=== PATIENT | male | born 1965 | race Two or more races ===

== ENCOUNTER 2025-02-15 18:11 | Emergency (ER) | payer MEDICAID, OTHER ==
[~2025-02-15] VITALS: Ht 182.9 cm; Wt 88.6 kg
[2025-02-15 19:30] VITALS: PULSE 71; RESP 17; O2SAT 95
[2025-02-15 19:50] LABS: Hematocrit 48.3 % (41.0-53.0); Hemoglobin 16.2 g/dL (13.5-17.5); Mean Corpuscular Hemoglobin 31.6 pg (28.0-32.0); Mean Corpuscular Volume 94.5 fL (80.0-100.0); Nucleated Red Blood Cells % 0.0 %
--- NOTE | 2025-02-15 19:54 | ED.PDOC ---
Altered Mental Status HPI Comments HPI: 59 year old male presents to the ED via EMS with a chief compliant of ETOH onset today (02/15/25). Per EMS, patient is from [facility], patient consumed 1 large Vodka bottle today. Upon EMS arrival, they were told there is a "[facility]ies" outbreak at the [facility], EMS noticed bugs in patient's room. However p atient does not complain of any itchiness or skin symptoms. He was given 4mg Zofran in route to ED. Patient is a poor historian, states he is currently experiencing back pain. He has chronic back pain with multiple back surgeries. No other symptoms or modifying factors present at this time. No history of fall or trauma or injuries. Initial Vitals BP: 117/72 HR: 62 RR: 17 O2: 99% Temp: 97.2 F Past Medical History: unknown Past Surgical History: back surgery, RT foot surgery Social History: Denies smoking, and drug use. Heavy ETOH. Medications: Denies Allergies: NKDA HPI: Poor Historian. REVIEW OF SYSTEMS: CONSTITUTIONAL: Denies acute: fever, diaphoresis, chills, HEAD: Denies acute: headache, photophobia Eyes: Denies acute: Double vision, vision loss, eye pain, eye discharge. EARS: Denies acute: tinnitus, hearing loss, ear discharge, ear pain, THROAT: Denies acute: sore throat, swelling, difficulty swallowing , pain with swallowing, change in voice. NECK: Denies acute: neck pain, neck swelling, stiff neck. HEART: Denies acute : chest pain, palpitations, LUNGS: Denies acute: SOB, wheezing, cough, hemoptysis ABDOMEN: Denies acute: abdominal pain, Nausea, Vomiting, diarrhea, melena , hematemesis, hematochezia SKIN: Denies acute: rash, redness, lesions, itchiness. EXTREMITIES: Denies acute: calf pain, numbness, tingling, weakness, denies pain in extremity. Denies acute: Low back pain. Neuro: Denies acute: focal neurological deficit, motor or sensory focal neurological deficit, tremors, seizure like activity, loss of bowel or bladder function, cauda equina like symptoms. : Denies acute: dysuria, hematuria, flank pain, increase in urinary frequency. PSYCH: Denies acute: hallucination, suicidal ideation, homicidal ideation. PHYSICAL EXAM: General: ----no----acute distress, awake and alert. Head: normocephalic, atraumatic. Neck: supple, trachea is midline, no swelling. Throat: Normal phonation. Eyes:, no erythema, no purulent discharge, no proptosis, no icterus. Heart: regular rate, regular rhythm, no significant murmur appreciated. Lungs: no apparent respiratory distress, Able to speak in full sentences. No wheezing, no rhonchi, no crackles. No stridors Clear to auscultation bilaterally. Abdomen: non tender to palpation, non distended, soft, no guarding, no rebound, + bowel sounds. Neuro: Awake, Alert, oriented to name, follows commands. Appears under the influence of alcohol. Sluggish in response Skin: no petechia, no purpura, no cyanosis, non-pale, not jaundice. Lower extremities: --trace bilateral - Pitting edema no deformity, no focal swelling, no calf TTP. Makes eye contact. moves all four extremities. Face: no apparent facial droop. Ambulating in the ED independently. ED COURSE: DISCLAIMER: This medical document was created using an electronic medical record system with voice recognition software and computerized dictation system. Although this document has been carefully reviewed, there might still be some phonetic and typographical errors. Occasional wrong-word or "sound-alike" substitutions may have occurred due to the inherent limitations of voice recognition software. These areas are purely typographical due to imperfections of the software programs and do not reflect any compromise in the patient's medical care. Please read the chart carefully and recognize, using context, where these substitutions have occurred. Chief Complaint: ETOH Time Seen by MD: 19:15 Reviewed Notes: Medications, Allergies Allergies: Coded Allergies: NO KNOWN ALLERGIES (Unverified , 02/15/25) Information Source: Patient, Emergency Med Personnel Mode of Arrival: EMS Severity: Moderate Timing: Days Duration: Since onset Prehospital treatment: Treatment (Zofran 4mg) Past Medical History Surgical History (Other): back surgery, RT foot surgery Family History Family History: Reviewed,noncontributory to illness, No family hx of Cancer, No family hx of DM, No family hx of Heart willem, No family hx of HTN, No family hx ofKidney willem, No family hx of Liver willem, No family hx of Lung willem, No family hx of Stroke Social History Smoker: Non-Smoker Alcohol: Heavy Drugs: Denies Drug Use Lives In: [facility] Was a procedure done? Was a procedure done?: No Differential Diagnosis (ALOC) Differential Diagnosis: Dehydration, Hypoglycemia, DKA, Sepsis, Hypoxemia, Seizure, Closed Head Injury, Drug Overdose, ETOH Intoxication, Heart Failure, Renal Failure, Other (DDX include CVA, TGA, cerebellar ischemia/infarct, carotid stenosis, Intracranial mass/infection/bleed, encephalopathy, electrolyte abnormality, thyroid disease, hydrocephalus, hypoglycemia, drug toxicity, cardiac arrhythmia, seizure, infection in the elderly, Hyperammonemia., kidney failure., sepsis.) X-Ray, Labs, Meds, VS Vital Signs Date Time Temp Pulse Resp B/P (MAP) Pulse Ox O2 Delivery O2 Flow Rate FiO2 02/16/25 06:00 97.9 60 14 142/76 (98) 98 97.9 02/16/25 04:00 78 12 114/91 (99) 97 02/16/25 02:00 80 12 130/83 (99) 97 02/16/25 01:00 78 10 122/77 (92) 97 02/16/25 00:00 83 8 122/79 (93) 92 02/15/25 23:00 58 12 105/62 (76) 97 02/15/25 22:00 57 11 128/68 (88) 92 02/15/25 20:54 62 20 122/77 (92) 92 02/15/25 19:30 97.8 71 17 101/59 (73) 95 97.8 02/15/25 19:30 71 17 95 Room Air* 0 21 02/15/25 18:20 97.2 62 17 117/72 99 97.2 Lab Test 02/16/25 05:44 02/16/25 00:27 02/15/25 19:35 Range/Units Plasma/Serum Blood Alcohol 124.9 H 226.6 H 276.1 H <10 mg/dL White Blood Count 9.3 4.4-10.8 10^3/uL Red Blood Count 5.11 4.5-5.90 10^6/uL Hemoglobin 16.2 13.5-17.5 g/dL Hematocrit 48.3 41.0-53.0 % Mean Corpuscular Volume 94.5 80.0-100.0 fL Mean Corpuscular Hemoglobin 31.6 28.0-32.0 pg Mean Corpuscular Hemoglobin Concent 33.5 32.0-36.0 g/dL Red Cell Distribution Width 13.9 11.8-14.3 % Platelet Count 126 L 140-450 10^3/uL Mean Platelet Volume 10.8 6.9-10.8 fL Neutrophils (%) (Auto) 59.7 37.0-80.0 % Lymphocytes (%) (Auto) 28.1 10.0-50.0 % Monocytes (%) (Auto) 4.9 0.0-12.0 % Eosinophils (%) (Auto) 6.3 0.0-7.0 % Basophils (%) (Auto) 1.0 0.0-2.0 % Neutrophils # (Auto) 5.6 1.6-8.6 10 ^3/uL Lymphocytes # (Auto) 2.6 0.4-5.4 10 ^3/uL Monocytes # (Auto) 0.5 0-1.3 10 ^3/uL Eosinophils # (Auto) 0.6 0-0.8 10 ^3/uL Basophils # (Auto) 0.1 0-0.2 10 ^3/uL Nucleated Red Blood Cells 0.0 % Sodium Level 144 136-145 mmol/L Potassium Level 4.1 3.5-5.1 mmol/L Chloride Level 110 H 98-107 mmol/L Carbon Dioxide Level 25 20-31 mmol/L Anion Gap 9 5-15 Blood Urea Nitrogen 11 9-23 mg/dL Creatinine 0.65 L 0.700-1.30 mg/dL Glomerular Filtration Rate Calc 109 >90 mL/min BUN/Creatinine Ratio 16.9 10.0-20.0 Serum Glucose 98 74-106 mg/dL Lactic Acid Level 2.0 0.4-2.0 mmol/L Calcium Level 8.5 L 8.7-10.4 mg/dL Magnesium Level 2.2 1.6-2.6 mg/dL Total Bilirubin 0.3 0.2-1.0 mg/dL Aspartate Amino Transferase (AST) 52 H 13-40 U/L Alanine Aminotransferase (ALT) 61 H 7-40 U/L Alkaline Phosphatase 114 46-116 U/L Troponin I High Sensitivity 17 </=54 ng/L B-Type Natriuretic Peptide 70.34 0-100 pg/mL Total Protein 7.2 5.7-8.2 g/dL Albumin 4.2 3.2-4.8 g/dL Current Medications Medications (Trade) Dose Ordered Sig/Elsy Route Start Time Stop Time Status Last Admin Sodium Chloride 1,000 ml @ 1,000 mls/hr Q1H ONCE IV 02/15/25 19:30 02/15/25 20:29 DC 02/15/25 20:50 Sodium Chloride 1,000 ml @ 1,000 mls/hr Q1H ONCE IV 02/15/25 22:45 02/15/25 23:44 DC 02/15/25 23:03 [place] [id number] Ph: [phone] DIAGNOSTIC IMAGING Diagnostic Imaging Report : [id number] Signed PATIENT: KASSANDRA GUSMAN ACCT: [id number] UNIT: [id number] : 1965 LOC: ER ROOM / BED: / AGE / SEX: 59 / M ADM STATUS: REG ER SERVICE 17 ORDERING PHYSICIAN: CHUCK OROSCO DO PROCEDURE(s): CXRP - CHEST PORTABLE REASON: ETOH ORDER NUMBER(s): [id number], ACCESSION NUMBER(s): [id number] CHEST RADIOGRAPH Indication: ETOH Technique: 1 view Comparison: None available FINDINGS: Lines and Tubes: None. Lungs/Pleura: Hazy basilar opacities most consistent with atelectasis. No focal consolidation, pleural effusion or pneumothorax. Cardiomediastinum: Normal heart size. Post CABG change. Other: No acute osseous abnormality. Unremarkable sternotomy wires. IMPRESSION: 1. No acute cardiopulmonary abnormality. ATED BY: AKASH SMITH MD DICTATED DATE/TIME: 02/15/252002 SIGNED BY: AKASH SMITH MD SIGNED DATE/TIME: 02/15/252002 CC: Time of 1ST Reevaluation: 19:45 Reevaluation 1ST: Unchanged Patient Education/Counseling: Diagnosis, Treatment Family Education/Counseling: No Family Present Assigned to Dr. Dr. Godoy. Patient is awaiting reassessment and final disposition and his ride to take him back to his facility. Comments MDM: patient presented with the above HPI.---alcohol intoxication---workup was initiated. patient was found with the above mentioned diagnosis. the following medications were ordered: please refer to order lists of meds and tests obtained by myself Dr. Orosco. Patient ED course and VS have been stabilized. Patient has been reassessed in the ED and remained in a stable condition. Escalation of care considered: Consideration of escalation to observation or admission Alcohol level is improving. Patient is awaiting final reassessment and disposition and his ride back to the facility. The care of this patient was signed out to my colleague Dr. Godoy All the reports of any imaging studies that were ordered by myself were reviewed by myself. Departure 1 Departure Time of Disposition: 07:13 Impression: Primary Impression: Alcohol intoxication Additional Impression: Alcohol abuse Disposition: HOME / SELF CARE / HOMELESS Condition: Stable Additional Instructions: Additional instructions: Please read all instructions provided in this packet carefully. You MUST follow-up with your primary care/family doctor in 1 to 2 days. If you are unable to see your primary care/family doctor, please return to our emergency room for re-assessment and re-evaluation in 1 to 2 days. Return to the emergency room here in our facility or to the nearest ER [facility] if your symptoms change or worsen. Seek help regarding your alcohol addiction. Adequate fluid hydration. Although you have been discharged from the Emergency Department, this does not mean that you have a "clean bill of health". No definitive diagnosis for your symptoms has been made today. It is possible that you are in the process of developing a serious illness. This is why you must return to the ED without fail if any new or worsening symptoms develop. Discharged With: Self Critical Care Note Critical Care Time?: No I personally scribed for CHUCK OROSCO DO ([email or web address]) on 02/15/25 at 19:54. Electronically submitted by Abbie Loya ([email or web address]). I personally scribed for CHUCK OROSCO DO ([email or web address]) on 02/15/25 at 20:35. Electronically submitted by Abbie Loya ([email or web address]). CHUCK OROSCO DO Feb 15, 2025 19:54
[2025-02-15 20:06] LABS: Albumin 4.2 g/dL (3.2-4.8); Alkaline Phosphatase 114 U/L (46-116); Anion Gap 9 (5-15); BUN/Creatinine Ratio 16.9 (10.0-20.0); Blood Urea Nitrogen 11 mg/dL (9-23); Carbon Dioxide 25 mmol/L (20-31); Glucose 98 mg/dL (74-106); Magnesium 2.2 mg/dL (1.6-2.6); Potassium 4.1 mmol/L (3.5-5.1); Sodium 144 mmol/L (136-145); Total Protein 7.2 g/dL (5.7-8.2)
--- NOTE | 2025-02-15 20:06 | DVH ---
CHEST RADIOGRAPH Indication: ETOH Technique: 1 view Comparison: None available FINDINGS: Lines and Tubes: None. Lungs/Pleura: Hazy basilar opacities most consistent with atelectasis. No focal consolidation, pleura l effusion or pneumothorax. Cardiomediastinum: Normal heart size. Post CABG change. Other: No acute osseous abnormality. Unremarkable sternotomy wires. IMPRESSION: 1. No acute cardiopulmonary abnormality.
[2025-02-15 20:11] LABS: Alanine Aminotransferase 61 U/L (7-40); Bilirubin, Total 0.3 mg/dL (0.2-1.0); Calcium 8.5 mg/dL (8.7-10.4); Chloride 110 mmol/L (98-107)
[2025-02-15] MEDS: SODIUM CHLORIDE 0.9% 1,000 ML IV ONE ×2 (20:50→23:03)
[2025-02-16 06:00] VITALS: TEMP 97.9
[2025-02-16 07:30] VITALS: PULSE 85; RESP 13; O2SAT 97
[2025-02-16] MEDS ORDERED: PER60TP TOP (08:19)
--- NOTE | 2025-02-16 08:19 | ED.PDOC ---
Departure 1 Departure Time of Disposition: 07:13 Impression: Primary Impression: Alcohol intoxication Qualified Codes: F10.920 - Alcohol use, unspecified with intoxication, uncomplicated Additional Impressions: Alcohol abuse Scabies Disposition: [facility]AC[facility] Condition: Stable Additional Instructions: You have scabies. You were prescribed permethrin. Please take as directed. Additional instructions: Please read all instructions provided in this packet carefully. You MUST follow-up with your primary care/family doctor in 1 to 2 days. If you are unable to see your primary care/family doctor, please return to our emergency room for re-assessment and re-evaluation in 1 to 2 days. Return to the emergency room here in our facility or to the nearest ER [facility] if your symptoms change or worsen. Seek help regarding your alcohol addiction. Adequate fluid hydration. Although you have been discharged from the Emergency Department, this does not mean that you have a "clean bill of health". No definitive diagnosis for your symptoms has been made today. It is possible that you are in the process of developing a serious illness. This is why you must return to the ED without fail if any new or worsening symptoms develop. e-Prescriptions Permethrin (Elimite) 5 % Cre 1 APPLIC TOP ONCE for 1 Day, #60 GRAMS 1 Refill Prov: HOLLY SALINAS MD 02/16/25 Discharged With: Self HOLLY SALINAS MD Feb 16, 2025 08:19
[2025-02-16 09:24] VITALS: BP 135/91; PULSE 93; RESP 15; O2SAT 97
== END 2025-02-16 09:24 | disposition home or self-care (01) ==
LOC: ER 18:11 → EDBD 18:11 → ER 02-16 09:24
DX: F10.120 Alcohol abuse with intoxication, uncomplicated (principal); B86 Scabies; G89.29 Other chronic pain; M54.9 Dorsalgia, unspecified; Z88.8 Allergy status to other drugs, medicaments and biological substances; Z79.899 Other long term (current) drug therapy; Y90.9 Presence of alcohol in blood, level not specified
CPT/HCPCS: 36415; 71045; 80053; 80320; 83605; 83735; 83880; 84484; 85025; 96360; 96361; 99285; J7030

== ENCOUNTER 2025-03-28 21:21 | Emergency (ER) | payer MEDICAID ==
[~2025-03-28] VITALS: Ht 172.7 cm; Wt 90.3 kg
[~2025-03-28 21:21] MED LIST: PER60TP TOP
[2025-03-28 22:56] VITALS: BP 117/65; PULSE 66; RESP 14; TEMP 98.1; O2SAT 95
--- NOTE | 2025-03-29 01:06 | ED.PDOC ---
History of Present Illness HPI Comments Patient brought in by EMS, [facility], they called EMS because patient has been drinking. Patient showed up intoxicated. Patient answering questions appropriately, states he did drink vodka today. Patient has no complaints. Chief Complaint: ETOH Time Seen by MD: 22:09 Reviewed Notes: Nurses Notes Allergies: Coded Allergies: NO KNOWN ALLERGIES (Unverified , 02/15/25) Home Meds Active Scripts Permethrin (Elimite) 5 % Cre, 1 APPLIC TOP ONCE for 1 Day, #60 GRAMS 1 Refill Prov:HOLLY SALINAS MD 02/16/25 Information Source: Patient Mode of Arrival: EMS Past Medical History PAST MEDICAL HISTORY: Denies Surgical History: Denies all surgeries Family History Family History: Reviewed,noncontributory to illness, No family hx of Cancer, No family hx of DM, No family hx of Heart willem, No family hx of HTN, No family hx ofKidney willem, No family hx of Liver willem, No family hx of Lung willem, No family hx of Stroke Social History Smoker: Non-Smoker Alcohol: Heavy Drugs: Denies Drug Use Lives In: [facility] Constitutional: denies: chills, diaphoresis, fatigue, fever, malaise, sweats, weakness, others EENTM: denies: blurred vision, double vision, ear bleeding, ear discharge, ear drainage, ear pain, ear ringing, eye pain, eye redness, hearing loss, mouth pain, mouth swelling, nasal discharge, nose bleeding, nose congestion, nose pain, photophobia, tearing, throat pain, throat swelling, voice changes, others Respiratory: denies: cough, hemoptysis, orthopnea, SOB at rest, shortness of breath, SOB with excertion, stridor, wheezing, others Cardiovascular: denies: chest pain, dizzy spells, diaphoresis, Dyspnea on exertion, edema, irregular heart beat, left arm pain, lightheadedness, palpitations, PND, syncope, others Gastrointestinal: denies: abdomen distended, abdominal pain, blood streaked bowels, constipated, diarrhea, dysphagia, difficulty swallowing, hematemesis, melena, nausea, poor appetite, poor fluid intake, rectal bleeding, rectal pain, vomiting, others Genitourinary: denies: burning, dysuria, flank pain, frequency, hematuria, incontinence, penile discharge, penile sore, pain, testicle pain, testicle swelling, urgency, others Neurological: denies: dizziness, fainting, headache, left sided numbness, left sided weakness, numbness, paresthesia, pre-existing deficit, right sided numbness, right sided weakness, seizure, speech problems, tingling, tremors, weakness, others Musculoskeletal: denies: back pain, gout, joint pain, joint swelling, muscle pain, muscle stiffness, neck pain, others Integumetry: denies: bruises, change in color, change in hair/nails, dryness, laceration, lesions, lumps, rash, wounds, others Allergic/Immunocompromised: denies: Difficulty Healing, Frequent Infections, Hives, Itching, others Hematologic/Lymphatic: denies: anemia, blood clots, easy bleeding, easy bruising, swollen glands, others Endocrine: denies: excessive hunger, excessive sweating, excessive thirst, excessive urination, flushing, intolerance to cold, intolerance to heat, un explained weight gain, unexplained weight loss, others Psychiatric: denies: anxiety, bipolar disorder, depression, hopeless, panic disorder, schizophrenia, sleepless, suicidal, others Physical Exam General Appearance: No Apparent Distress, Normal HEENT: Normal ENT Inspection, Pharynx Normal, TMs Normal Neck: Full Range of Motion, Non-Tender, Normal, Normal Inspection Respiratory: Chest Non-Tender, Lungs Clear, No Accessory Muscle Use, No Respiratory Distress, Normal Breath Sounds Cardiovascular: No Edema, No JVD, No Murmur, No Gallop, Normal Peripheral Pulses, Regular Rate/Rhythm Breast Exam: Deferred Gastrointestinal: No Organomegaly, Non Tender, No Pulsatile Mass, Normal Bowel Sounds, Soft Genitalia: Deferred Pelvic: Deferred Rectal: Deferred Extremities: No calf tenderness, Normal capillary refill, Normal inspection, Normal range of motion, Non-tender, No pedal edema Musculoskeletal : Apperance: Normal Neurologic: Alert, engineer second assistant II-XII nml as Tested, No Motor Deficits, Normal Affect, Normal Mood, No Sensory Deficits Cerebellar Function: Normal Reflexes: Normal Skin: Dry, Normal Color, Warm Lymphatic: No Adenopathy Was a procedure done? Was a procedure done?: No Differential Dx Considerations may include: Sepsis, urinary tract infection, alcohol intoxication X-Ray, Labs, Meds, VS Vital Signs Date Time Temp Pulse Resp B/P (MAP) Pulse Ox O2 Delivery O2 Flow Rate FiO2 03/28/25 22:57 Room Air* 0 21 03/28/25 22:56 98.1 66 14 117/65 (82) 95 98.1 03/28/25 21:29 98.9 69 15 110/78 100 98.9 X-Ray, Labs, Meds, VS Comment Imaging was reviewed by this provider, there is no obvious pathological or acute disease process. Pending radiology review Labs were reviewed by this provider, no abnormalities Vital signs reviewed by this provider, clinically stable Time of 1ST Reevaluation: 01:06 Reevaluation 1ST: Unchanged Patient Education/Counseling: Diagnosis, Treatment, Need For Follow Up (Follow up with PCP as needed) Family Education/Counseling: Diagnosis, Treatment SEPSIS Sepsis Screen Date sepsis recognized/suspect: Mar 28, 2025 Time Sepsis recognized/suspect: 2255 Recent Procedure: No On Antibiotic Therapy: No Respiratory Rate >20: No Heart Rate >90: No Temp<36 C (96.8 F) or >38.3 C: No SBP <90 or MAP <65 mmHG: No New Acute Mental Status Change: No Is the patient on CPAP, BIPAP,: No Vital Signs Date Time Temp Pulse Resp B/P (MAP) Pulse Ox O2 Delivery O2 Flow Rate FiO2 03/28/25 22:57 Room Air* 0 21 03/28/25 22:56 98.1 66 14 117/65 (82) 95 98.1 03/28/25 21:29 98.9 69 15 110/78 100 98.9 Departure 1 Departure Time of Disposition: 01:05 Impression: Primary Impression: Alcohol intoxication Qualified Codes: F10.920 - Alcohol use, unspecified with intoxication, uncomplicated Disposition: 01 HOME / SELF CARE / HOMELESS Condition: Stable Discharged With: Self Critical Care Note Critical Care Time?: No Stability Stability form required: No Heart Score Heart Score: Heart Score Response (Comments) Value History N/A 0 EKG N/A 0 Age N/A 0 Risk Factors N/A 0 Troponin N/A 0 Total 0 STAN ALEJANDRO Mar 29, 2025 01:06
== END 2025-03-29 01:29 | disposition home or self-care (01) ==
LOC: EDBD 21:21 → ER 21:21
DX: F10.129 Alcohol abuse with intoxication, unspecified (principal); Z79.899 Other long term (current) drug therapy; Y90.9 Presence of alcohol in blood, level not specified